=== PATIENT | female | born 1945 | race Caucasian/White ===

== ENCOUNTER 2020-01-07 15:00 | Outpatient (REF) | payer OTHER, SELFPAY ==
[2020-01-07 16:13] LABS: Alanine Aminotransferase 14 U/L (0-31); Albumin Level 4.3 g/dL (3.5-5.0); Alkaline Phosphatase 61 U/L (39-117); Anion Gap 12 (12-20); Aspartate Amino Transferase 21 U/L (5-31); Bilirubin Total 0.5 mg/dL (0.0-1.0); Blood Urea Nitrogen 16 mg/dL (9-16); Calcium 9.2 mg/dL (8.4-10.2); Carbon Dioxide 28 mmol/L (22-29); Chloride 105 mmol/L (96-108); Estimated Glomerular Filt Rate > 60; Glucose Random 104 mg/dL (60-115); Potassium 4.7 mmol/l (3.3-5.1); Sodium 140 mmol/L (135-145); Total Protein 6.8 g/dL (6.5-8.0)
[2020-01-07 16:27] LABS: T4 Thyroxine 7.8 ug/dL (4.5-12.0); Thyroid Stimulating Hormone 2.22 mIU/mL (0.32-4.0)
[2020-01-07 16:43] LABS: Folate 19.7 ng/mL (> or = 4.0); Vitamin B12 877 pg/mL (200-900)
== END 2020-01-07 15:01 | disposition home or self-care (01) ==
LOC: HO.LAB 15:00
PROVIDERS: Visit Provider Psychiatry & Neurology Neurology
DX: R79.89 Other specified abnormal findings of blood chemistry (principal)
CPT/HCPCS: 80053; 82607; 82746; 84436; 84443

== ENCOUNTER 2020-02-14 11:41 | Outpatient (REF) | payer OTHER, SELFPAY ==
--- NOTE | 2020-02-14 11:45 | CT_ITS ---
EXAMINATION: CT HEAD WITHOUT CONTRAST CLINICAL INFORMATION: Mild cognitive impairment. COMPARISON: None TECHNIQUE: Contiguous axial imaging was performed from the skull base to vertex without intravenous administration of contrast. This CT examination was performed using dose optimization techniques as appropriate, variously including the following: *Automated exposure control *Adjustment of mA and/or kV according to patient size (this includes techniques or standardized protocols for targeted exams where dose is matched to indication/reason for exam; i.e. extremities or head) *Use of iterative reconstruction technique DLP: 681 mGy-cm FINDINGS: There is no evidence of acute intracranial hemorrhage or territorial infarction. No abnormal mass effect or midline shift is seen. There are dystrophic bibasilar ganglia calcifications. Blanchard to white matter differentiation is well preserved. No extra-axial fluid collections are identified. The ventricles are normal in size. There is no abnormal attenuation within the brain parenchyma. There is benign hyperostosis frontalis interna. The osseous structures and soft tissues are normal. The mastoid air cells and visualized portions of the paranasal sinuses are well aerated. CT/CT head/brain wo con IMPRESSION: No acute intracranial process seen.
== END 2020-02-14 11:42 | disposition home or self-care (01) ==
LOC: HO.CT 11:41
PROVIDERS: PCP Internal Medicine; Visit Provider Psychiatry & Neurology Neurology
DX: G31.84 Mild cognitive impairment of uncertain or unknown etiology (principal)
CPT/HCPCS: 70450